=== PATIENT | female | born 1970 | race American Indian/Alaskan Native ===

== ENCOUNTER 2017-12-12 08:13 | Outpatient (CLI) | payer OTHER ==
--- NOTE | 2017-12-12 16:17 | Mammography Report ---
BILATERAL DIGITAL DIAGNOSTIC MAMMOGRAM with CAD: 12/12/17 08:13:00 CLINICAL: A palpable right axillary mass. A report from [place] at [facility] describes a targeted ultrasound of the right axilla revealing a solid hypoechoic mass measuring 2.7 x 2.5 x 2.0 cm. A diagnostic mammogram was recommended and an absent guided aspiration was recommended. This report was not available when the patient presented and I have no recent comparison images. COMPARISON:03/21/14 [facility] mammogram FINDINGS: The breasts are heterogeneously dense, which may obscure small masses. An oval smooth relatively dense circumscribed mass of the right axilla measures 2.5 x 2.0 x 3.0 cm and correlates with the mass described by the targeted ultrasound. No other mass, architectural distortion or suspicious calcifications. The left breast is negative. Please note that a brownish right nipple discharge was observed with compression of the right breast. IMPRESSION: A suspicious 3 cm right axillary mass. Recommend ultrasound guided needle core biopsy of this mass. I also recommend a global right breast ultrasound at the time of the biopsy to determine if there is a mass of the breast which may be mammographically occult. If there is an additional suspicious lesion of the right breast, it could be biopsied in the same sitting as the biopsy of the right axillary mass. BI-RADS CATEGORY: 4--Suspicious ACR BI-RADS MAMMOGRAPHIC CODES: 0 = Needs additional imaging evaluation; 1 = Negative; 2 = Benign; 3 = Probably benign; 4 = Suspicious; 5 = Malignant; 6 = Known biopsy-proven malignancy COMMENT: 1. Dense breast tissue, i.e., adenosis, fibrocystic changes, etc., may obscure an underlying neoplasm. 2. Approximately 10% of cancers are not detected with mammography. 3. A negative mammography report should not delay biopsy if a clinically suspicious mass is present. COMMENT: Patient follow-up letters are generated by our [employer] application.
== END 2017-12-12 08:14 | disposition home or self-care (01) ==
LOC: SPVWC 08:13
PROVIDERS: ATTEND Family Medicine
DX: R92.8 Other abnormal and inconclusive findings on diagnostic imaging of breast (principal)
CPT/HCPCS: 77066; 77067